=== PATIENT | male | born 1990 | race American Indian/Alaskan Native ===

== ENCOUNTER 2019-02-09 13:00 | Emergency (ER) | payer SELFPAY ==
[2019-02-09 13:08] VITALS: BP 116/70
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
--- NOTE | 2019-02-09 13:31 | XRay Report ---
XR spine cervical 2-3V INDICATION / CLINICAL INFORMATION: Neck pain. COMPARISON: None available. FINDINGS: BONES/JOINT(S): No vertebral fracture. No significant degenerative changes. Normal alignment and bone mineralization. SOFT TISSUES: No significant abnormality. ADDITIONAL FINDINGS: None. Signer Name: Everton Toussaint MD Signed: 02/09/2019 1:27 PM Workstation Name: [email or web address]
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
== END 2019-02-09 15:24 | disposition home or self-care (01) ==
LOC: ED 13:00
DX: S16.1XXA Strain of muscle, fascia and tendon at neck level, initial encounter (principal); M79.10 Myalgia, unspecified site; Z79.1 Long term (current) use of non-steroidal anti-inflammatories (NSAID); Z79.899 Other long term (current) drug therapy; Z21 Asymptomatic human immunodeficiency virus [HIV] infection status; V89.2XXA Person injured in unspecified motor-vehicle accident, traffic, initial encounter; Y93.89 Activity, other specified; Y92.89 Other specified places as the place of occurrence of the external cause; Y99.8 Other external cause status
CPT/HCPCS: 72040; 99283

== ENCOUNTER 2019-06-16 09:53 | Emergency (ER) | payer SELFPAY ==
[2019-06-16 10:22] VITALS: BP 127/85
[2019-06-16] MEDS ORDERED: ACETAMINOPHEN 325 MG TAB PO ONE (11:22)
--- NOTE | 2019-06-16 11:23 | Emergency Department Report ---
ED General Adult HPI - General Chief complaint: Pain General Stated complaint: PAIN Time Seen by Provider: 06/16/19 11:18 Source: patient Mode of arrival: Ambulatory Limitations: No Limitations - History of Present Illness Initial comments: 28-year-old -H[place]ian male with a history of HIV that is noncompliant on medications presents to the emergency room stating he has had a 2-week history of body aches and pains. Patient reports that he has been having chest discomfort and difficulty swallowing patient denies any fever no nausea no vomiting just short of breath with movement and chest discomfort. Patient denies any diarrhea or abdominal pain no dysuria no penile discharge. Patient states that the pain is in his feet ankles knees his neck when he turns to the right or left. States that he feels a lump in his throat on the outside. Patient states he is a patient at [facility] for his HIV but has been off his medications for the last 6 months. Patient has taken nothing for his pain. Onset/Timin -: week(s) Location: chest, left, right, lower extremity Radiation: proximal Consistency: constant Improves with: none Worsens with: none - Related Data Previous Rx's Medication Instructions Recorded Last Taken Type Cyclobenzaprine [Flexeril] 10 mg PO QHS PRN #20 tablet 02/09/19 Unknown Rx Ibuprofen [Motrin 800 MG tab] 800 mg PO Q8HR PRN #30 tablet 02/09/19 Unknown Rx Allergies Allergy/AdvReac Type Severity Reaction Status Date / Time No Known Allergies Allergy Verified 02/09/19 13:02 ED Review of Systems ROS: Stated complaint: PAIN Other details as noted in HPI ED Past Medical Hx - Past Medical History Previous Medical History?: Yes Hx HIV: Yes Additional medical history: HIV - Surgical History Past Surgical History?: No - Social History Smoking Status: Never Smoker Substance Use Type: Prescribed - Medications Home Medications: Home Medications Medication Instructions Recorded Confirmed Last Taken Type Cyclobenzaprine [Flexeril] 10 mg PO QHS PRN #20 tablet 02/09/19 Unknown Rx Ibuprofen [Motrin 800 MG tab] 800 mg PO Q8HR PRN #30 tablet 02/09/19 Unknown Rx ED Physical Exam - General Limitations: No Limitations General appearance: alert, in no apparent distress - Head Head exam: Present: atraumatic, normocephalic - Eye Eye exam: Present: normal appearance - ENT ENT exam: Present: mucous membranes moist - Neck Neck exam: Present: normal inspection - Respiratory Respiratory exam: Present: normal lung sounds bilaterally. Absent: respiratory distress - Cardiovascular Cardiovascular Exam: Present: regular rate, normal rhythm. Absent: systolic murmur, diastolic murmur, rubs, gallop - GI/Abdominal GI/Abdominal exam: Present: soft, normal bowel sounds - Rectal Rectal exam: Present: deferred - Extremities Exam Extremities exam: Present: normal inspection - Back Exam Back exam: Present: normal inspection - Neurological Exam Neurological exam: Present: alert, oriented X3 - Psychiatric Psychiatric exam: Present: normal affect, normal mood - Skin Skin exam: Present: warm, dry, intact, normal color. Absent: rash ED Course Vital Signs 06/16/19 09:57 Temperature 97.9 F Pulse Rate 71 Respiratory 18 Rate Blood Pressure 127/85 O2 Sat by Pulse 99 Oximetry ED Medical Decision Making - Lab Data Result diagrams: 06/16/19 12:10 - Radiology Data Radiology results: report reviewed Print Report Referring Physician:DEMETRA LOPEZPatient Name:LEA TRAOREPatient ID:[id number] of :[id number]:MaleAccession:[id number] Date:[id number] Status:Finalized Findings [address] [address] XRay Report Signed Patient: LEA TRAORE MR#: [id number] : 1990 Acct:[id number] Age/Sex: 28 / M ADM Date: 06/16/19 Loc: ED Attending Dr: Ordering Physician: EVEYLN ARAGON Date of Service: 06/16/19 Procedure(s): XR chest routine 2V Accession Number(s): [id number] cc: EVELYN ARAGON Fluoro Time In Minutes: CHEST 2 VIEWS INDICATION / CLINICAL INFORMATION: sob,cough and rales. COMPARISON: None available. FINDINGS: SUPPORT DEVICES: None. HEART / MEDIASTINUM: No significant abnormality. LUNGS / PLEURA: No significant pulmonary or pleural abnormality. No pneumothorax. ADDITIONAL FINDINGS: No significant additional findings. IMPRESSION: No significant abnormality Signer Name: He Ho MD FACR Signed: 06/16/2019 11:44 AM Workstation Name: [id number] Transcribed By: MS Dictated By: He Ho MD Electronically Authenticated By: He Ho MD Signed Date/Time: 06/16/191143 DD/ 43 TD/TT: - Medical Decision Making 28-year-old -H[place]ian male with a history of HIV that is noncompliant on medications presents to the emergency room stating he has had a 2-week history of body aches and pains. Patient reports that he has been having chest discomfort and difficulty swallowing patient denies any fever no nausea no vomiting just short of breath with movement and chest discomfort. Patient denies any diarrhea or abdominal pain no dysuria no penile discharge. Patient states that the pain is in his feet ankles knees his neck when he turns to the right or left. States that he feels a lump in his throat on the outside. Patient states he is a patient at [facility] for his HIV but has been off his medications for the last 6 months. Patient has taken nothing for his pain. Critical care attestation.: If time is entered above; I have spent that time in minutes in the direct care of this critically ill patient, excluding procedure time. ED Disposition Clinical Impression: Body aches, HIV (human immunodeficiency virus infection) Disposition: DC-01 TO HOME OR SELFCARE Is pt being admited?: No Does the pt Need Aspirin: No Condition: Stable Additional Instructions: X-ray is negative for any acute findings. Blood work is stable shows no signs of infection. I recommend you to take [id number] Tylenol or ibuprofen as needed for management of your pain is very important for you to follow-up with your infectious disease provider to start back on your HIV medications. Referrals: BC NAVA MD [Primary Care Provider] - 3-5 Days NABIL MAYORGA MD [Staff Physician] - 3-5 Days ABBY SOLARES MD [Staff Physician] - 3-5 Days
--- NOTE | 2019-06-16 11:48 | XRay Report ---
CHEST 2 VIEWS INDICATION / CLINICAL INFORMATION: sob,cough and rales. COMPARISON: None available. FINDINGS: SUPPORT DEVICES: None. HEART / MEDIASTINUM: No significant abnormality. LUNGS / PLEURA: No significant pulmonary or pleural abnormality. No pneumothorax. ADDITIONAL FINDINGS: No significant additional findings. IMPRESSION: No significant abnormality Signer Name: He Ho MD FACR Signed: 06/16/2019 11:44 AM Workstation Name: [id number]
[2019-06-16 12:24] LABS: Basophils % (Auto) 0.2 % (0.0-1.8); Eosinophils # (Auto) 0.1 K/mm3 (0.0-0.4); Hematocrit 40.8 % (35.5-45.6); Hemoglobin 13.6 gm/dl (11.8-15.2); Lymphocytes # (Auto) 1.5 K/mm3 (1.2-5.4); Lymphocytes % (Auto) 23.6 % (13.4-35.0); Mean Corpuscular HGB Conc 33 % (32-34); Mean Corpuscular Volume 90 fl (84-94); Monocytes # (Auto) 0.5 K/mm3 (0.0-0.8); Monocytes % (Auto) 7.4 % (0.0-7.3); Platelet Count 321 K/mm3 (140-440); Red Blood Count 4.53 M/mm3 (3.65-5.03); Red Cell Distribution Width 13.3 % (13.2-15.2)
[2019-06-16 12:51] LABS: Erythrocyte Sedimentation Rate 47 mm/Hr (0-20)
[2019-06-16 12:57] LABS: Alanine Aminotransferase 18 units/L (7-56); Albumin 3.4 g/dL (3.9-5); BUN/Creatinine Ratio 10; Blood Urea Nitrogen 8 mg/dL (9-20); Calcium 8.9 mg/dL (8.4-10.2); Hemolysis Index 42
== END 2019-06-16 13:25 | disposition home or self-care (01) ==
LOC: ED 09:53
DX: R53.81 Other malaise (principal); R07.89 Other chest pain; R06.02 Shortness of breath; Z21 Asymptomatic human immunodeficiency virus [HIV] infection status; Z79.1 Long term (current) use of non-steroidal anti-inflammatories (NSAID); Z79.899 Other long term (current) drug therapy
CPT/HCPCS: 36415; 71046; 80053; 85025; 85652; 99284

== ENCOUNTER 2021-10-10 08:33 | Emergency (ER) | payer SELFPAY ==
[2021-10-10 10:18] LABS: Basophils % (Auto) 0.4 % (0.0-1.8); Eosinophils # (Auto) 0.1 K/mm3 (0.0-0.4); Eosinophils % (Auto) 1.2 % (0.0-4.3); Hematocrit 43.2 % (35.5-45.6); Hemoglobin 14.7 gm/dl (11.8-15.2); Lymphocytes # (Auto) 1.8 K/mm3 (1.2-5.4); Lymphocytes % (Auto) 16.3 % (13.4-35.0); Mean Corpuscular HGB Conc 34 % (32-34); Mean Corpuscular Volume 92 fl (84-94); Monocytes % (Auto) 8.8 % (0.0-7.3); Platelet Count 468 K/mm3 (140-440); Red Blood Count 4.69 M/mm3 (3.65-5.03); Red Cell Distribution Width 13.3 % (13.2-15.2)
[2021-10-10 10:42] LABS: Alanine Aminotransferase 10 units/L (7-56); Albumin 3.9 g/dL (3.9-5); BUN/Creatinine Ratio 6; Blood Urea Nitrogen 5 mg/dL (9-20); Calcium 9.7 mg/dL (8.4-10.2); Hemolysis Index 2
[2021-10-10 10:53] LABS: Bilirubin,Urine NEG (Negative); Blood,Urine NEG (Negative); Color,Urine Yellow (Yellow)
[2021-10-10 10:56] LABS: Mucus,Urine FEW /HPF; WBC,Urine < 1.0 /HPF (0.0-6.0)
--- NOTE | 2021-10-10 11:56 | XRay Report ---
ABDOMEN 1 VIEW 10/10/2021 10:43 AM INDICATION / CLINICAL INFORMATION: No bowel movement and abdomina pain; r/o constipation. COMPARISON: None available. FINDINGS: TUBES / LINES: None. BOWEL GAS PATTERN: There is a mild to moderate amount stool throughout the right and transverse colon . I see no evidence of bowel obstruction or mass effect. FREE AIR / EXTRALUMINAL GAS: None. ADDITIONAL FINDINGS: There are prior surgical changes involving the left iliac wing. IMPRESSION: No acute findings. Signer Name: Gerry Long MD Signed: 10/10/2021 11:51 AM Workstation Name: [id number]
[2021-10-10] MEDS ORDERED: MAGNESIUM CITRATE 300 ML ORAL LIQD PO ONE (12:32)
--- NOTE | 2021-10-10 12:35 | Emergency Department Report ---
ED Abdominal Pain HPI - General Chief Complaint: Urogenital-Male Stated Complaint: RECTAL/STOOL BLEEDING/CONSTIPATED Time Seen by Provider: 10/10/21 10:46 Source: patient Mode of arrival: Ambulatory Limitations: No Limitations - History of Present Illness Initial Comments: 30-year-old black male with a past medical history of HIV presents to the emergency department for evaluation of abdominal pain, possible constipation, and rectal bleeding. He states that for the past 2 to 3 weeks he has not been able to have a good bowel movement. He states that whenever he goes, he strains a lot and only small pellets come out. He states that he took a stool relaxer twice and he had a little bit of stool out but he has not been able to get any out for the last several days. He states that for the past couple times that he tried to go, he strained, and noticed some blood when he wiped. He states that it feels like he needs to go, but when he gets to the bathroom nothing comes out. He states that he has had some intermittent abdominal pain but denies fever, nausea, vomiting, dysuria, and penile discharge. MD Complaint: abdominal pain -: Gradual, days(s) (2) Location: LLQ, RLQ Radiation: none Migration to: no migration Severity scale (0 -10): 7 Quality: cramping Consistency: intermittent Associated Symptoms: constipation. denies: nausea, vomiting, diarrhea, fever, chills, dysuria, hematemesis, hematochezia, melena, hematuria, anorexia, syncope - Related Data Previous Rx's Medication Instructions Recorded Last Taken Type Cyclobenzaprine [Flexeril] 10 mg PO QHS PRN #20 tablet 02/09/19 Unknown Rx Ibuprofen [Motrin 800 MG tab] 800 mg PO Q8HR PRN #30 tablet 02/09/19 Unknown Rx Polyethylene Glycol 3350 [Miralax] 17 gm PO DAILY #1 bottle 10/10/21 Unknown Rx Allergies Allergy/AdvReac Type Severity Reaction Status Date / Time No Known Allergies Allergy Verified 02/09/19 13:02 ED Review of Systems ROS: Stated complaint: RECTAL/STOOL BLEEDING/CONSTIPATED Other details as noted in HPI Comment: All other systems reviewed and negative Constitutional: denies: chills, fever ENT: denies: congestion Respiratory: denies: shortness of breath Cardiovascular: denies: chest pain, palpitations Gastrointestinal: abdominal pain, constipation. denies: nausea, vomiting, diarrhea, hematemesis, melena, hematochezia Genitourinary: denies: urgency, dysuria Musculoskeletal: denies: back pain Skin: denies: rash, lesions Neurological: denies: headache ED Past Medical Hx - Past Medical History Hx HIV: Yes Additional medical history: HIV - Social History Smoking Status: Never Smoker Substance Use Type: Prescribed - Medications Home Medications: Home Medications Medication Instructions Recorded Confirmed Last Taken Type Cyclobenzaprine [Flexeril] 10 mg PO QHS PRN #20 tablet 02/09/19 Unknown Rx Ibuprofen [Motrin 800 MG tab] 800 mg PO Q8HR PRN #30 tablet 02/09/19 Unknown Rx Polyethylene Glycol 3350 [Miralax] 17 gm PO DAILY #1 bottle 10/10/21 Unknown Rx ED Physical Exam - General Limitations: No Limitations General appearance: alert, in no apparent distress - Head Head exam: Present: atraumatic, normocephalic - Eye Eye exam: Present: normal appearance. Absent: conjunctival injection, periorbital swelling, periorbital tenderness - ENT ENT exam: Present: normal exam - Neck Neck exam: Present: normal inspection, full ROM. Absent: tenderness, lymphadenopathy - Respiratory Respiratory exam: Present: normal lung sounds bilaterally. Absent: respiratory distress, wheezes, rales, rhonchi, stridor, chest wall tenderness - Cardiovascular Cardiovascular Exam: Present: regular rate, normal heart sounds - GI/Abdominal GI/Abdominal exam: Present: normal bowel sounds. Absent: soft, distended, tenderness, guarding, rebound, rigid - Extremities Exam Extremities exam: Present: normal inspection, normal capillary refill. Absent: tenderness, pedal edema, joint swelling, calf tenderness - Back Exam Back exam: Present: normal inspection. Absent: CVA tenderness (R), CVA tenderness (L) - Neurological Exam Neurological exam: Present: alert, oriented X3, CN II-XII intact, normal gait - Psychiatric Psychiatric exam: Present: normal affect, normal mood - Skin Skin exam: Present: warm, dry, intact, normal color ED Course Vital Signs 10/10/21 10/10/21 09:23 12:50 Temperature 98.3 F 98.7 F Pulse Rate 76 82 Respiratory 18 16 Rate Blood Pressure 109/76 102/68 [Left] O2 Sat by Pulse 100 100 Oximetry ED Medical Decision Making - Lab Data Result diagrams: 10/10/21 09:47 10/10/21 09:47 - Radiology Data Radiology results: report reviewed, image reviewed KUB: FINDINGS: TUBES / LINES: None. BOWEL GAS PATTERN: There is a mild to moderate amount stool throughout the right and transverse colon. I see no evidence of bowel obstruction or mass effect. FREE AIR / EXTRALUMINAL GAS: None. ADDITIONAL FINDINGS: There are prior surgical changes involving the left iliac wing. IMPRESSION: No acute findings. - Medical Decision Making 30-year-old black male with a past medical history of HIV presents to the emergency department for evaluation of abdominal pain, possible constipation, and rectal bleeding. He states that for the past 2 to 3 weeks he has not been able to have a good bowel movement. He states that whenever he goes, he strains a lot and only small pellets come out. He states that he took a stool relaxer twice and he had a little bit of stool out but he has not been able to get any out for the last several days. He states that for the past couple times that he tried to go, he strained, and noticed some blood when he wiped. He states that it feels like he needs to go, but when he gets to the bathroom nothing comes out. He states that he has had some intermittent abdominal pain but denies fever, nausea, vomiting, dysuria, and penile discharge. Physical exam unremarkable. Labs and urine without any gross abnormalities noted. KUB positive for constipation. Patient treated with 1 bottle of mag citrate in the emergency department then discharged home with MiraLAX to take daily for the next 6 to 7 days. He is advised to take medications as prescribed and follow-up with his primary care provider if no improvement or worsening symptoms. He is advised to return to the emergency department as needed. He verbalizes understanding of and agreement with plan of care. Critical care attestation.: If time is entered above; I have spent that time in minutes in the direct care of this critically ill patient, excluding procedure time. ED Disposition Clinical Impression: Constipation Qualifiers: Constipation type: unspecified constipation type Qualified Code(s): K59.00 - Constipation, unspecified Disposition: 01 HOME / SELF CARE / HOMELESS Is pt being admited?: No Does the pt Need Aspirin: No Condition: Stable Instructions: Constipation, Adult, [id number] Additional Instructions: Take medications as prescribed. Increase amount of of noncaffeinated fluid intake. Increase dietary fiber. Follow-up with your primary care provider if no improvement or worsening symptoms. Return to the emergency department as needed. Prescriptions: Polyethylene Glycol 3350 [Miralax] 17 gm PO DAILY #1 bottle Referrals: PRIMARY CARE, [Primary Care Provider] - 3-5 Days Time of Disposition: 12:34
[2021-10-10 13:04] VITALS: BP 102/68
== END 2021-10-10 13:04 | disposition home or self-care (01) ==
LOC: ED 08:33
DX: K59.00 Constipation, unspecified (principal); R10.31 Right lower quadrant pain; R10.32 Left lower quadrant pain; Z79.899 Other long term (current) drug therapy
CPT/HCPCS: 36415; 74018; 80053; 81001; 85025; 99284